=== PATIENT | female | born 1975 | race Caucasian/White ===

== ENCOUNTER 2016-12-26 18:20 | Emergency (ER) | payer OTHER, BC ==
[~2016-12-26] VITALS: Ht 165.1 cm; Wt 63.0 kg
[~2016-12-26 18:20] MED LIST: GABA100C4 PO; MEDR4PAK3 PO; NAPR220T95 PO
[2016-12-26 18:28] VITALS: BP 106/70; PULSE 78; RESP 16; TEMP 98.3; O2SAT 99
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
[2016-12-26] MEDS ORDERED: ROBA750T PO (19:19)
[2016-12-26] MEDS ORDERED: IBUP-232 PO (19:19)
[2016-12-26] MEDS ORDERED: IBUPROFEN 600 MG TAB PO ONE (19:30)
[2016-12-26] MEDS ORDERED: METHOCARBAMOL 500 MG TAB PO ONE (19:30)
== END 2016-12-26 20:06 | disposition home or self-care (01) ==
LOC: PHEFT 18:20
DX: S39.012A Strain of muscle, fascia and tendon of lower back, initial encounter (principal); V89.2XXA Person injured in unspecified motor-vehicle accident, traffic, initial encounter; Y92.410 Unspecified street and highway as the place of occurrence of the external cause
CPT/HCPCS: 99283